=== PATIENT | male | born 1940 | race Caucasian/White ===

== ENCOUNTER 2017-06-01 23:48 | Observation (INO) | payer OTHER ==
--- NOTE | 2017-06-02 00:46 | ERNOTE ---
Medical Problem HPI - Narrative Date of Service: 06/02/17 - General Chief Complaint: General Assessment Time Seen by Provider: 06/02/17 00:40 - Immun/Allergies/Home Medications Immunizations: IMMUNIZATION HX Immunizations Up to Date Yes History of Influenza Vaccine Yes Hx Pneumococcal Vaccination Yes Allergies/Adverse Reactions: Allergies Penicillins Allergy (Verified 06/01/17 23:58) Home Medications: HOME MEDICATIONS Atorvastatin Calcium 0.5 tab PO HS 06/02/17 [Last Taken Unknown] HYDROcodone/ACETAMINOPHEN [[place] 5-325] 1 tab PO Q4H PRN 06/02/17 [Last Taken Unknown] Lisinopril [Zestril] 20 mg PO BID 06/02/17 [Last Taken Unknown] Tamsulosin HCl [Flomax] 0.4 mg PO DAILY 06/02/17 [Last Taken Unknown] amLODIPine BESYLATE [Norvasc] 10 mg PO DAILY 06/02/17 [Last Taken Unknown] busPIRone HCL [Buspar] 20 mg PO BID 06/02/17 [Last Taken Unknown] clonazePAM [Klonopin] 1 mg PO DAILY 06/02/17 [Last Taken Unknown] - History of Present History Narrative: This is a 76-year-old male with multiple past medical problems who presents to the emergency department around midnight. The patient and his were attempting to drive to [place] to the [facility] there, but they could not make it. The patient has been complaining of increasing abdominal pain, increasing weakness, pain in his penis, pain in his prostate, pain in his feet, inability to lay flat, generalized malaise. This is been going on and off for several months but seems to got much worse over the last 2- 3 days. It was so bad that they felt they had a drive in the middle of the night up to [place]. Again they did not make it. The patient denies chest pain. He denies shortness of breath. He denies vomiting. He has nausea. He says he does have constipation. He does not know when his last bowel movement was. His says that when he drinks any fluids, it just "goes right through him" patient denies headache or blurred vision. He says he has neuropathy in his legs, and his legs always hurt. Timing: getting worse Severity: severe Modifying Factors - (Improves): Present: other - on none Modifying Factors - (Worsens): Present: other - none Review of Systems - Review of Systems Constitutional: Present: recent illness, weakness, fatigue, malaise, weight loss EYE: Present: no symptoms reported ENT: Present: no symptoms reported Respiratory: Present: no symptoms reported. Absent: shortness of breath, cough , orthopnea, wheezing Cardiology: Present: no symptoms reported. Absent: chest pain, palpitations, syncope, edema Gastrointestinal/Abdominal: Present: nausea, constipation, abdominal pain, eating less. Absent: vomiting, diarrhea, drinking less Genitourinary: Present: frequency, pain. Absent: decreased urinary output, discharge Musculoskeletal: Present: muscle pain, other - generalized weakness and deconditioning Skin: Present: no symptoms reported Neurological: Present: no symptoms reported. Absent: weakness, numbness, tingling, tremors Endocrine: Present: no symptoms reported Hematologic/Lymphatic: Present: no symptoms reported Psych: Present: no symptoms reported All Other Systems: All systems neg except as marked - Patient's Past Medical History Patient History - Medical: Other Patient History - Cardiac/Respiratory: COPD, Hypertension Patient History - Cancer: Bladder Patient History - Surgical Procedures: Back Surgery, Cholecystectomy, Other Patient History - Other: None - Social History Living Situations: home Psych History: No pertinent hx Smoking Status: Current every day smoker Alcohol Use: none Drug Use: none - Immunizations Immunizations Up to Date: Yes Hx Pneumococcal Vaccination: Yes History of Influenza Vaccine: Yes Physical Exam - Physical Exam General Appearance: Present: wd/wn, alert, other - patient is ill-appearing. He is not in any distress. He cannot stand up on his own. Eye Exam: Normal inspection: bilateral, PERRL: bilateral, EOMI: bilateral Ears, Nose, Throat: Present: normal ENT inspection, normal pharynx Neck: Present: normal inspection, nontender, supple, other - no JVD Respiratory: Present: no respiratory distress, no accessory muscle use, chest nontender, wheezing Cardiovascular/Chest: Present: regular rate, rhythm, systolic murmur Gastrointestinal/Abdominal: Present: nondistended, soft, other - patient with significant tenderness in all quadrants. No rebound. No guarding Rectal Exam: Present: deferred Back Exam: Present: normal inspection, normal range of motion, no CVA tenderness , no vertebral tenderness Extremity Exam: Present: normal inspection, non-tender, normal range of motion, no edema Neurological Exam: Present: alert, oriented, normal mood/affect, no motor/ sensory deficits, other - generally weak Skin Exam: Present: normal color, warm/dry Lymphatic Exam: Present: no adenopathy ED Progress - Results and Orders Patient's Lab Results:: I have reviewed the patient's lab results. - Vital Signs Patient's Vital Signs:: I have reviewed the patient's vital signs. Vital Signs: Vital Signs 06/01/17 23:50 Temperature 38.6 C H Pulse Rate 113 H Respiratory 13 Rate Blood Pressure 157/79 O2 Sat by Pulse 93 Oximetry - EKG EKG: atrial fibrillation, other EKG Comments: Inferior MA. Age undetermined. No acute ST segment changes. Atrial fibrillation with rapid ventricular response. - Progress/Reassessment Chief Complaint: General Assessment Plan - Plan Plan: I've spoken with the hospitalist. She will come down and admit the patient. Heart rate is now 84 after a single bolus of Cardizem. Will hold off on the drip. Antibiotics are going. Certainly if he did not improve the hospitalist may want to consider transfer to the [place]. Departure - Departure Clinical Impression: Urinary tract infection Disposition: [facility] Condition: Stable
[2017-06-02 00:59] LABS: Hematocrit 38.6 % (42.0-52.0); Hemoglobin 13.5 gm/dL (13.5-18.0); Mean Cell Volume 85.8 fl (78-100); Mean Platelet Volume 9.8 fl (6.0-9.5); Neutrophil # 11.3 K/mm3 (1.3-6.0); Neutrophil % 86.6 % (42-75.0); Platelet Count 186 K/mm3 (150-450); Red Cell Distribution Width 13.7 % (11.5-14.0); White Blood Count 13.1 K/mm3 (4.0-10.5)
[2017-06-02 01:17] LABS: Albumin * 2.6 gm/dl (3.4-5.0); Anion Gap 11.4 mmol/L (6.8-13.8); BUN/Creatinine Ratio 14.7 (9.0-21.6); Bilirubin, Total 0.7 mg/dL (0.0-1.1); Ca. Corrected For Albumin 9.9 mg/dL (8.4-10.2); Calcium * 9.1 mg/dL (7.9-10.9); Carbon Dioxide 32.1 mmol/L (24-32.6); Potassium 3.5 mmol/L (3.4-4.6); Total Protein 6.1 gm/dL (6.2-8.2)
[2017-06-02 01:18] LABS: Urine Appearance Cloudy; Urine Bacteria 4+; Urine Bilirubin Negative (NEGATIVE); Urine Blood 50 /ul (NEGATIVE); Urine Color Yellow; Urine Ketone Negative (NEGATIVE); Urine Nitrite Positive (NEGATIVE); Urine Protein 100 mg/dL (NEGATIVE); Urine RBC None Seen /hpf (0-5); Urine Urobilinogen Normal (NORMAL); Urine WBC >50 /hpf (0-5); Urine pH 6.5 pH (5.0-7.0)
[2017-06-02 01:22] LABS: Troponin I 0.028 ng/ml (0.00-0.10)
[2017-06-02] MEDS ORDERED: DILTIAZEM HCL 125 MG in DEXTROSE 5 % IN WATER 100 ML IV PRN ×2 (01:25)
[2017-06-02] MEDS ORDERED: DILTIAZEM HCL 5 MG/ML VIAL IV ONE ×2 (01:25→01:29)
[2017-06-02 01:34] LABS: Prothrombin Time (Patient) 11.1 Seconds (9.4-11.4)
[2017-06-02 01:40] LABS: INR 1.07 INR (0.90-1.10)
--- OUTSIDE RECORDS SUMMARY | 2017-06-02 01:48 | XMS REPORT | Continuity of Care Document ---
:1940 Author Organization [facility] [place] [address] Care Team Providers Name Role Phone Unavailable Primary Care Provider Unavailable Source Comments This disclosure is being made pursuant to the [employer] program and maynot contain all information available regarding this patient.[facility] Active Allergies and Adverse Reactions Not on File Current Medications Be aware that medications may not be up to date as of this document. Alwaysverify current medications with the patient. Not on file Active Problems Not on file Immunizations Name Dates Previously Given Next Due Influenza Split 09/02/2007,10/28/2006 Pneumococcal Polysaccharide-23 10/28/2006 Social History Tobacco Use Types Packs/Day Years Used Date Current Every Day Smoker Plan of Care Health Maintenance Due Date Last Done Comments Tetanus/Pertussis (1 - Tdap) 1958 Well Adult Visit 1989 Zoster Vaccine 60+ 1999 Pneumococcal Low/Medium Risk 65+ (2 of 2 - 10/28/2007 10/28/2006 PCV13) Influenza Immunization (#1) 2016 09/02/2007, 10/28/2006 Results from Last 3 Months Not on file Insurance Payer Benefit Plan / Group Subscriber ID Type Phone Address [facility] [id number] [address] [place] [phone] [place] [address]
[2017-06-02] MEDS ORDERED: SENNOSIDES 8.6 MG TABLET PO SCH (02:57)
--- NOTE | 2017-06-02 03:23 | HP ---
Chief Complaint - Chief Complaint Date of Service: 06/02/17 Time of Service: 02:48 Chief Complaint: "Frequent urination, weakness, frequent falls". Source of HPI - Pt; reliable, ERP Provider report. History of Present Illness: Mr. Chen is a 76-yr-old [facility] pt who normally [facility] [place]. His PMH involves: BPH, Bladder Cancer, COPD, Degenerative disc disease & HTN. Pt states that for the last 7 days, he has had frequent urination and incontinence. He was out of his Flomax medication for 2 days and thought his symptoms may have been caused by lack of medicine. He called his PCP and the medication was refilled. He continued taking the Flomax, but his symptoms never really improved. He resides in [place], [place], his decided to drive him up to the [facility]. However, they had to stop at total of [address] due to his urinary urgency and so they decided to diverge to come to the [facility] ER instead. He reports having fevers and chills at home. He also states that he has been very weak lately. He says that performing even a simple task such as 'standing while shaving has been difficult and that he has staggered into the jimenez at times.' He reports his appetite has been very poor , has had LT sided abdominal pain and that his bowels have not moved for three days. He denies N/V, flank pain and hematurina, but he has had suprapubic pain. During evaluation at the ED, the CXR did not show any acute findings. The Abdominal X-ray showed moderate stool retention but no obstruction. He was found to have an elevated WBC 13,100 with a LT shift. He was febrile with a temp of 38.6. The EKG showed new onset A-fib with RVR in the 110s and he given 10mg IVP Diltiazem which controlled his rate to < 100. The UA showed presence of UTI. The pt will be admitted under observation status for remote telemetry monitoring and due to UTI. - Patient's Past Medical History Patient History - Medical: Other - BPH Patient History - Cardiac/Respiratory: COPD, Hypertension Patient History - Cancer: Bladder Patient History - Surgical Procedures: Back Surgery, Cholecystectomy, Other - Partial gastrectomy vagotomy in 1970s Patient History - Other: None - Family History Mother Family History - Medical: Father Family History - Medical: - Social History Living Situations: home Psych History: No pertinent hx Smoking Status: Current every day smoker - 1 ppd for 60 yrs. Alcohol Use: none Drug Use: none - Immunizations Immunizations Up to Date: Yes Hx Pneumococcal Vaccination: Yes History of Influenza Vaccine: Yes Review Of Systems (GEN) - Review of Systems Generalized/Overall Review: Present: Weakness, Chills, Fever, Malaise, Weight loss EENTM: Absent: Eye Pain, Blurred Vision, Tearing, Throat Swelling, Mouth Pain Respiratory: Absent: Cough, Shortness of Breath, Orthopnea, Wheezing Cardiac: Absent: Chest Pain, Edema, Palpitations Abdominal: Present: Abdominal Pain, Constipation. Absent: Nausea, Vomiting, Hematemesis, Diarrhea, Melena Genitourinary: Present: Burning, Urgency, Frequency. Absent: Hematuria Musculoskeletal: Present: Joint Pain, Back Pain Neurological: Present: Headache, Anxiety, Numbness Skin: Absent: Lesions, Bruising Endocrine: Present: Intolerance to Cold. Absent: Intolerance to Heat, Increased Hunger, Increased Thirst Misc: All systems neg except as marked Immunizations: IMMUNIZATION HX Immunizations Up to Date Yes History of Influenza Vaccine Yes Hx Pneumococcal Vaccination Yes Allergies/Adverse Reactions: Allergies Allergy/AdvReac Type Severity Reaction Status Date / Time Penicillins Allergy Verified 06/01/17 23:58 Home Medications: HOME MEDICATIONS Atorvastatin Calcium 0.5 tab PO HS 06/02/17 [Last Taken Unknown] HYDROcodone/ACETAMINOPHEN [[place] 5-325] 1 tab PO Q4H PRN 06/02/17 [Last Taken Unknown] Lisinopril [Zestril] 20 mg PO BID 06/02/17 [Last Taken Unknown] Tamsulosin HCl [Flomax] 0.4 mg PO DAILY 06/02/17 [Last Taken Unknown] amLODIPine BESYLATE [Norvasc] 10 mg PO DAILY 06/02/17 [Last Taken Unknown] busPIRone HCL [Buspar] 20 mg PO BID 06/02/17 [Last Taken Unknown] clonazePAM [Klonopin] 1 mg PO DAILY 06/02/17 [Last Taken Unknown] Exam - Exam Vital Signs: Vital Signs - Last Taken Temp 38.6 C H 06/01/17 23:50 Pulse 98 06/02/17 01:38 Resp 18 06/02/17 00:54 BP 112/69 06/02/17 01:38 Pulse Ox 92 06/02/17 00:54 Constitutional: Present: Alert, Oriented x3, Cooperative, No distress, Looks Older than stated age ENT Exam: Present: normal ENT inspection, hearing grossly normal. Absent: nasal congestion, nasal drainage Eye Exam: bilateral eye: normal inspection, PERRL Neck: Present: full range of motion, supple, normal inspection Back Exam: Present: normal inspection, no CVA tenderness Breasts: Present: Exam deferred Respiratory: Present: lungs clear, no accessory muscle use, No wheezing Cardiovascular/Chest: Present: normal peripheral pulses, no chest tenderness, no edema, irregularly irregular Abdomen: Present: Normal bowel sounds, soft, nontender /Rectal: Present: Exam deferred Extremity: Present: normal range of motion, non-tender, normal inspection Skin Exam: Present: warm/dry, no cyanosis Lymphatic: Present: no adenopathy Neurologic: Present: no motor/sensory deficits, alert, oriented x 3, depressed affect Appearance: Present: appropriate appearance, appropriate insight Eye contact: Present: cooperative, good eye contact, normal speech Thoughts: Present: normal thought pattern, no apparent hallucination Diagnostic Studies: Laboratory Results WBC 13.1 K/mm3 (4.0-10.5) H 06/02/17 00:55 RBC 4.50 M/mm3 (4.7-6.0) L 06/02/17 00:55 Hgb 13.5 gm/dL (13.5-18.0) 06/02/17 00:55 Hct 38.6 % (42.0-52.0) L 06/02/17 00:55 MCV 85.8 fl (78-100) 06/02/17 00:55 MCH 30.0 pg (27-31) 06/02/17 00:55 MCHC 35.0 g/dl (32-36) 06/02/17 00:55 RDW 13.7 % (11.5-14.0) 06/02/17 00:55 Plt Count 186 K/mm3 (150-450) 06/02/17 00:55 MPV 9.8 fl (6.0-9.5) H 06/02/17 00:55 Immature Gran % (Auto) 0.60 % (0.001-0.429) H 06/02/17 00:55 Immature Gran # (Auto) 0.08 K/mm3 (0.000-0.0310) H 06/02/17 00:55 Neutrophils % 86.6 % (42-75.0) H 06/02/17 00:55 Lymphocytes % 3.4 % (20-51) L 06/02/17 00:55 Monocytes % 9.1 % (0.0-9) H 06/02/17 00:55 Eosinophils % 0.1 % (0.0-3.0) 06/02/17 00:55 Basophils % 0.2 % (0.0-1.0) 06/02/17 00:55 Nucleated RBC % 0.0 k/mm3 (0-1) 06/02/17 00:55 Neutrophils # 11.3 K/mm3 (1.3-6.0) H 06/02/17 00:55 Lymphocytes # 0.5 k/mm3 (1.5-3.5) L 06/02/17 00:55 Monocytes # 1.2 k/mm3 (0.0-1.0) H 06/02/17 00:55 Eosinophils # 0.0 k/mm3 (0.0-0.7) 06/02/17 00:55 Absolute Basophils 0.0 k/mm3 (0.0-0.1) 06/02/17 00:55 PT 11.1 Seconds (9.4-11.4) 06/02/17 00:55 INR (Anticoag Therapy) 1.07 INR (0.90-1.10) 06/02/17 00:55 pCO2 36.8 mmHg (35.0-48.0) 06/02/17 00:50 pO2 54.4 mmHg (83.0-108.0) L 06/02/17 00:50 HCO3 29.2 mmol/L (21.0-28.0) H 06/02/17 00:50 Total CO2 30.3 mmol/L (19.0-24.0) H 06/02/17 00:50 Base Excess 6.1 mmol/L (-2.0-3.0) H 06/02/17 00:50 ABG pH 7.52 (7.35-7.45) H 06/02/17 00:50 ABG O2 Sat (Measured) 91.4 % (94.0-98.0) L 06/02/17 00:50 Sodium 131 mmol/L (132-142) L 06/02/17 00:55 Plasma Sodium 133 mmol/L (130-142) 06/02/17 00:55 Potassium 3.5 mmol/L (3.4-4.6) 06/02/17 00:55 Chloride 91 mmol/L (97-106) L 06/02/17 00:55 Carbon Dioxide 32.1 mmol/L (24-32.6) 06/02/17 00:55 Anion Gap 11.4 mmol/L (6.8-13.8) 06/02/17 00:55 BUN 17 mg/dL (6-23) 06/02/17 00:55 Creatinine 1.16 mg/dL (0.4-1.4) 06/02/17 00:55 Est GFR (Non-Af Amer) 65 mL/min (60-130) 06/02/17 00:55 BUN/Creatinine Ratio 14.7 (9.0-21.6) 06/02/17 00:55 Random Glucose 209 mg/dL (70-110) H 06/02/17 00:55 Lactic Acid, Venous 1.3 mmol/L (0.4-1.9) 06/02/17 00:55 Calcium 9.1 mg/dL (7.9-10.9) 06/02/17 00:55 Calcium Adj for Albumin 9.9 mg/dL (8.4-10.2) 06/02/17 00:55 Total Bilirubin 0.7 mg/dL (0.0-1.1) 06/02/17 00:55 AST 21 U/L (0-48) 06/02/17 00:55 ALT 36 U/L (19-67) 06/02/17 00:55 Alkaline Phosphatase 121 U/L (50-170) 06/02/17 00:55 Troponin I 0.028 ng/ml (0.00-0.10) 06/02/17 00:55 B-Natriuretic Peptide 1598 pg/mL (5-650) H 06/02/17 00:55 Total Protein 6.1 gm/dL (6.2-8.2) L 07 00:55 Albumin 2.6 gm/dl (3.4-5.0) L 06/02/17 00:55 Lipase 32 U/L (73-393) L 06/02/17 00:55 Urine Color Yellow 06/02/17 01:00 Urine Appearance Cloudy 06/02/17 01:00 Urine pH 6.5 pH (5.0-7.0) 06/02/17 01:00 Ur Specific Decker 1.010 SP.GR. (1.005-1.030) 06/02/17 01:00 Urine Protein 100 mg/dL (NEGATIVE) H 06/02/17 01:00 Urine Glucose (UA) Negative mg/dL (NEGATIVE) 06/02/17 01:00 Urine Ketones Negative mg/dL (NEGATIVE) 06/02/17 01:00 Urine Blood 50 /ul (NEGATIVE) H 06/02/17 01:00 Urine Nitrate Positive (NEGATIVE) H 06/02/17 01:00 Urine Bilirubin Negative mg/dl (NEGATIVE) 06/02/17 01:00 Prot Sulfosalicylic Acd 2+ mg/dL (0) H 06/02/17 01:00 Urine Urobilinogen Normal EU/dl (NORMAL) 06/02/17 01:00 Ur Leukocyte Esterase 500 /ul (NEGATIVE) H 06/02/17 01:00 Urine RBC None seen /hpf (0-5) 06/02/17 01:00 Urine WBC >50 /hpf (0-5) H 06/02/17 01:00 Ur Epithelial Cells 0-5 /hpf (0-5) 06/02/17 01:00 Urine Bacteria 4+ (NONE) H 06/02/17 01:00 Urine Culture Comments Culture to follow 06/02/17 01:00 Assessment/Plan - Assessment/Plan (1) Urinary tract infection Assessment: Mr. Chen presented with symptoms involving frequent urination and urge incontinence and the UA showed presence of a UTI. He was also febrile with a temp of 38.6 at the ED along with elevated WBC of 13,100. PMH reveals hx of BPH , Bladder cancer & Constipation. Its likely the the UTI arose due to obstruction causes from the BPH or Constipation. Will treat his constipation with stimulant laxatives. Will check PVR and if having high residuals, consider consulting urology, otherwise he has an upcoming appt. at the [facility] of 06/20/17 for his BPH. Received Rocephin at the ED and will continue until urine culture results. Monitor CBC in am. Problem: Acute (2) Atrial fibrillation with RVR Assessment: The EKG showed A-fib with RVR rate into the 110s and required IVP diltiazem to control the rate to < 100 but remained in A-fib until 0400am when he converted to NSR. He reported the associated symptoms of lightheadedness & SOB, but no chest pain, or palpitations. The EKG and troponin did not show any signs of ischemic changes. He had no electrolyte imbalance. His BNP was elevated at 1598 and its possible that the he has structural heart diseases from CHF, or other valvular disease, and so it will be helpful obtain an Echocardiogram. Its also likely that the Afib with RVR was caused by systemic stress from fevers or infection. Will place on remote telemetry and monitor while under observation stay incase he warrants additional work-up and anticoagulation therapy. Will obtain records from [facility]. Problem: Acute (3) Discharge planning issues Assessment: Pt prefers to be transferred to the [facility] in the event that he needs inpatient admission. Problem: Acute (4) Constipation Assessment: He is chronically on Opiods. Will Treat with stimulant laxatives. Problem: Chronic (5) HTN (hypertension) Problem: Chronic Qualifiers: Hypertension type: essential hypertension Qualified Code(s): I10 - Essential (primary) hypertension (6) BPH (benign prostatic hyperplasia) Problem: Chronic (7) Bladder cancer Problem: Chronic
[2017-06-02] MEDS: NORMAL SALINE 1,000 ML IV PRN ×2 (04:27→12:42)
[2017-06-02] MEDS: HYDROcodone/ACETAMINOPHEN 1 EACH TABLET PO PRN ×2 (04:37→09:18)
[2017-06-02] MEDS: POLYETHYLENE GLYCOL 3350 119 GM BTL PO SCH ×2 (04:37→09:10)
[2017-06-02 05:46] LABS: Hematocrit 36.8 % (42.0-52.0); Hemoglobin 12.8 gm/dL (13.5-18.0); Mean Cell Volume 86.4 fl (78-100); Mean Corpuscular Hgb Conc 34.8 g/dl (32-36); Mean Platelet Volume 10.1 fl (6.0-9.5); Platelet Count 189 K/mm3 (150-450); Red Blood Count 4.26 M/mm3 (4.7-6.0); Red Cell Distribution Width 13.8 % (11.5-14.0)
[2017-06-02 05:55] LABS: Anion Gap 7.5 mmol/L (6.8-13.8); BUN/Creatinine Ratio 15.3 (9.0-21.6); Calcium * 9.1 mg/dL (7.9-10.9); Estimated Creat Clear 57.5; Potassium 3.5 mmol/L (3.4-4.6)
[2017-06-02 05:57] LABS: Total Cells Counted 100
[2017-06-02 06:22] LABS: Atypical (Reactive) Lymph 1 % (0-2); Band 8 % (0-2.0); Immature Granulocyte 3 (0-1); Lymphocyte 8 % (20-51); Monocyte 1 % (0-9); Neutrophil 79 % (42-75); Neutrophil # 11.1 K/mm3 (1.3-6.0); Platelet Estimate Normal (NORMAL); Toxic Granulation 2+
[2017-06-02 08:25] VITALS: BP 117/56
[2017-06-02] MEDS ORDERED: LISINOPRIL 20 MG TABLET PO SCH (09:00)
[2017-06-02] MEDS ORDERED: amLODIPine BESYLATE 10 MG TABLET PO SCH (09:00)
[2017-06-02] MEDS ORDERED: TAMSULOSIN HCL 0.4 MG CAP.SR.24H PO SCH (09:00)
[2017-06-02] MEDS ORDERED: clonazePAM 1 MG TABLET PO SCH (09:00)
[2017-06-02] MEDS ORDERED: busPIRone HCL 5 MG TABLET PO SCH (09:00)
[2017-06-02] MEDS ORDERED: ACETAMINOPHEN 325 MG TABLET PO PRN (10:03)
[2017-06-02] MEDS ORDERED: ATORVASTATIN CALCIUM PO SCH (21:00)
--- NOTE | 2017-07-03 07:47 | DS ---
Transfer Discharge Summary - Diagnosis(s)/Problems (1) Atrial fibrillation with RVR Problem: Acute (2) Urinary tract infection Problem: Acute - Course Description of Stay: Patient was admitted to observation at [facility] due to UTI and Atrial fibrillation with RVR. He is a patient of the OR, which was contacted but initially did not have a bed for admission. The patient and family requested admission at the OR, but due to no open beds he was admitted here for observation. He was given rocephin for UTI and diltiazem for Afib with RVR. With this he converted to normal sinus rhythm. A bed became available at the OR and he was transferred to their facility for further treatment. Procedures Performed: none - Medications Medications: Active Medications Discontinued Medications Acetaminophen (Tylenol) 650 mg PO Q6H PRN PRN Reason: Mild pain Stop: 07/02/17 10:04 Last Admin: 06/02/17 11:51 Dose: 650 mg Acetaminophen/Hydrocodone Bitart ([place] 5-325) 1 each PO Q4H PRN PRN Reason: Pain Stop: 07/02/17 02:56 Last Admin: 06/02/17 09:18 Dose: 1 each Amlodipine Besylate (Norvasc) 10 mg PO DAILY CARLO Stop: 07/02/17 09:01 Last Admin: 06/02/17 09:10 Dose: 10 mg Buspirone HCl (Buspar) 20 mg PO BID CARLO Stop: 07/02/17 09:01 Last Admin: 06/02/17 09:10 Dose: 20 mg Clonazepam (Klonopin) 1 mg PO DAILY CARLO Stop: 07/02/17 09:01 Last Admin: 06/02/17 09:18 Dose: 1 mg Diltiazem HCl (Cardizem) 10 mg IV ONCE ONE Stop: 06/02/17 01:26 Last Admin: 06/02/17 01:38 Dose: 10 mg Ceftriaxone Sodium 1,000 mg/ (Dextrose/Water) 100 mls @ 200 mls/hr IV ONCE ONE PRN Reason: Protocol Stop: 06/02/17 01:49 Last Infusion: 06/02/17 02:10 Dose: Infused Sodium Chloride (Sodium Chloride 0.9%) 1,000 mls @ 125 mls/hr IV .Q8H PRN PRN Reason: HYDRATION Stop: 07/02/17 03:00 Last Admin: 06/02/17 12:42 Dose: 125 mls/hr Ceftriaxone Sodium 1,000 mg/ (Dextrose/Water) 100 mls @ 200 mls/hr IV Q12H CARLO PRN Reason: Protocol Stop: 07/02/17 06:31 Last Infusion: 06/02/17 08:15 Dose: Infused Lisinopril (Zestril) 20 mg PO BID CARLO Stop: 07/02/17 09:01 Last Admin: 06/02/17 09:09 Dose: 20 mg Polyethylene Glycol (Miralax) 17 gm PO DAILY CARLO Stop: 07/02/17 02:59 Last Admin: 06/02/17 09:10 Dose: 17 gm Senna (Senokot) 8.6 mg PO HS [facility] Stop: 07/02/17 02:58 Last Admin: 06/02/17 04:37 Dose: 8.6 mg Tamsulosin HCl (Flomax) 0.4 mg PO DAILY CARLO Stop: 07/02/17 09:01 Last Admin: 06/02/17 09:18 Dose: 0.4 mg - Disposition Disposition: Other health care facility Condition: Stable
== END 2017-06-02 13:20 | disposition short-term general hospital (02) ==
LOC: ER 23:48 → MS 06-02 02:02
PROVIDERS: ADMIT Nurse Practitioner; ATTEND Family Medicine
PROC: 4A033R1 Measurement of Arterial Saturation, Peripheral, Percutaneous Approach (ICD-10-PCS; principal; 2017-06-01)
DX: N39.0 Urinary tract infection, site not specified (principal); B96.20 Unspecified Escherichia coli [E. coli] as the cause of diseases classified elsewhere; I48.91 Unspecified atrial fibrillation; I10 Essential (primary) hypertension; J44.9 Chronic obstructive pulmonary disease, unspecified; Z72.0 Tobacco use; N40.1 Benign prostatic hyperplasia with lower urinary tract symptoms; R35.0 Frequency of micturition; K59.00 Constipation, unspecified; Z85.51 Personal history of malignant neoplasm of bladder
CPT/HCPCS: 36415; 36600; 71010; 74020; 80048; 80053; 81001; 82803; 83605; 83690; 83880; 84484; 85007; 85025; 85610; 87040; 87077; 87086; 87186; 93005; 96365; 96366; 96375; 99284; G0378

== ENCOUNTER 2017-08-03 16:18 | Emergency (ER) | payer OTHER ==
[2017-08-03 17:08] LABS: Hematocrit 41.6 % (42.0-52.0); Hemoglobin 14.3 gm/dL (13.5-18.0); Mean Corpuscular Hemoglobin 29.9 pg (27-31); Mean Corpuscular Hgb Conc 34.4 g/dl (32-36); Mean Platelet Volume 10.3 fl (6.0-9.5); Neutrophil # 5.1 K/mm3 (1.3-6.0); Neutrophil % 65.9 % (42-75.0); Platelet Count 172 K/mm3 (150-450); Red Blood Count 4.78 M/mm3 (4.7-6.0); Red Cell Distribution Width 14.4 % (11.5-14.0); White Blood Count 7.7 K/mm3 (4.0-10.5)
[2017-08-03 17:27] LABS: ALT 61 U/L (19-67); AST 35 U/L (0-48); Albumin * 3.3 gm/dl (3.4-5.0); Alkaline Phosphatase * 256 U/L (50-170); Anion Gap 11.1 mmol/L (6.8-13.8); BNP * 198 pg/mL (5-650); BUN/Creatinine Ratio 14.4 (9.0-21.6); Bilirubin, Total 0.6 mg/dL (0.0-1.1); Blood Urea Nitrogen 13 mg/dL (6-23); Ca. Corrected For Albumin 9.7 mg/dL (8.4-10.2); Calcium * 9.5 mg/dL (7.9-10.9); Carbon Dioxide 29.9 mmol/L (24-32.6); Chloride 96 mmol/L (97-106); Glucose * 99 mg/dL (70-110); Sodium 133 mmol/L (132-142); Total Protein 6.9 gm/dL (6.2-8.2); Troponin I Less than 0.017 ng/ml (0.00-0.10)
[2017-08-03 18:32] LABS: Urine Appearance Cloudy; Urine Bilirubin Negative (NEGATIVE); Urine Blood 10 /ul (NEGATIVE); Urine Color Yellow; Urine Ketone Negative (NEGATIVE); Urine Nitrite Negative (NEGATIVE); Urine Protein Negative (NEGATIVE); Urine Specific Gravity 1.005 SP.GR. (1.005-1.030); Urine Urobilinogen Normal (NORMAL); Urine pH 6.5 pH (5.0-7.0)
[2017-08-03 18:33] LABS: Urine WBC >50 /hpf (0-5)
[2017-08-03 18:34] LABS: Urine Bacteria 3+; Urine RBC 0-5 /hpf (0-5)
--- NOTE | 2017-08-03 19:19 | ERNOTE ---
Medical Problem HPI - Narrative Date of Service: 08/03/17 - General Chief Complaint: General Assessment Time Seen by Provider: 08/03/17 16:42 Source: patient, family Exam Limitations: no limitations, clinical condition - Immun/Allergies/Home Medications Immunizations: IMMUNIZATION HX Immunizations Up to Date Yes History of Influenza Vaccine Yes Hx Pneumococcal Vaccination Yes Allergies/Adverse Reactions: Allergies Penicillins Allergy (Verified 08/03/17 16:43) Home Medications: HOME MEDICATIONS Acetaminophen [Tylenol] 650 mg PO Q6H PRN 06/02/17 [Last Taken Unknown] Albuterol Sulfate [Ventolin Hfa] 2 puff IH QID 06/02/17 [Last Taken Unknown] Atorvastatin Calcium 10 mg PO HS 06/02/17 [Last Taken Unknown] Budesonide/Formoterol Fumarate [Symbicort 160-4.5 Mcg Inhaler] 2 puff IH BID 02/14 [Last Taken Unknown] Cholecalciferol (Vitamin D3) [Vitamin D3] 1,000 unit PO DAILY 06/02/17 [Last Taken Unknown] Clopidogrel Bisulfate [Plavix] 75 mg PO DAILY 06/02/17 [Last Taken Unknown] HYDROcodone/ACETAMINOPHEN [Camino 5-325] 1 tab PO Q4H PRN 06/02/17 [Last Taken Unknown] Lisinopril [Zestril] 20 mg PO BID 06/02/17 [Last Taken Unknown] Multivit with Minerals/Lutein [Pub Senior Vitamin Tablet] 1 each PO DAILY [Last Taken Unknown] Sennosides/Docusate Sodium [Senokot-S] 1 tab PO PRN PRN 06/02/17 [Last Taken Unknown] Tamsulosin HCl [Flomax] 0.4 mg PO DAILY 06/02/17 [Last Taken Unknown] Tamsulosin HCl [Flomax] 0.4 mg PO DAILY 06/02/17 [Last Taken Unknown] amLODIPine BESYLATE [Norvasc] 10 mg PO DAILY 06/02/17 [Last Taken Unknown] busPIRone HCL [Buspar] 10 mg PO BID 06/02/17 [Last Taken Unknown] clonazePAM [Klonopin] 0.5 mg PO DAILY 06/02/17 [Last Taken Unknown] Ciprofloxacin HCl [Cipro] 500 mg PO BID #20 tab 08/03/17 [Last Taken Unknown] HYDROcodone/ACETAMINOPHEN [Camino 7.5-325 Tablet] 1 each PO 5XD #40 tablet [Last Taken Unknown] - History of Present History Narrative: patient c/o low back pain , has been without pain maeds for several days as family has stolen them, also c/o frequency and dribbling Timing: constant, getting worse Severity: moderate Modifying Factors - (Improves): Present: immobilization Modifying Factors - (Worsens): Present: movement Review of Systems - Review of Systems Constitutional: Present: See HPI, weakness, malaise EYE: Present: no symptoms reported ENT: Present: no symptoms reported Respiratory: Present: no symptoms reported Cardiology: Present: no symptoms reported Gastrointestinal/Abdominal: Present: See HPI, other - hx of chronic smith colon Genitourinary: Present: See HPI, frequency, pain, dysuria Musculoskeletal: Present: back pain, muscle stiffness, joint pain Skin: Present: no symptoms reported Neurological: Present: no symptoms reported Endocrine: Present: no symptoms reported Hematologic/Lymphatic: Present: no symptoms reported, See HPI Psych: Present: no symptoms reported, See HPI All Other Systems: All systems neg except as marked - Narrative Narrative: chronic smith colon - Patient's Past Medical History Patient History - Medical: Chronic Pain, Osteoarthritis, Other Patient History - Cardiac/Respiratory: Atrial Fibrillation, COPD, Hypertension Patient History - Cancer: Bladder Patient History - Surgical Procedures: Back Surgery, Cholecystectomy, Other Patient History - Other: None - Family History Mother Family History - Medical: Father Family History - Medical: - Social History Living Situations: home Abuse History: No History of abuse, Hx of Substance Use Psych History: No pertinent hx Smoking Status: Current every day smoker Have you smoked in the past 12 months: Yes Alcohol Use: none Drug Use: none - Immunizations Immunizations Up to Date: Yes Hx Pneumococcal Vaccination: Yes History of Influenza Vaccine: Yes Physical Exam - Physical Exam General Appearance: Present: moderate distress Head Exam: Present: normal inspection Eye Exam: Normal inspection: bilateral, PERRL: bilateral, EOMI: bilateral Ears, Nose, Throat: Present: normal ENT inspection Neck: Present: normal inspection, nontender Respiratory: Present: no respiratory distress, normal breath sounds, no accessory muscle use, chest nontender, lungs clear Cardiovascular/Chest: Present: regular rate, rhythm, no murmur, normal peripheral pulses Peripheral Pulses: N=norm/S=strong/W=weak/B=bound/A=absent: Carotid (R): Normal , Carotid (L): Normal, Radial (R): Normal, Radial (L): Normal, Femoral (R): Normal, Femoral (L): Normal, Dorsalis-pedis (R): Normal, Dorsalis-pedis (L): Normal Gastrointestinal/Abdominal: Present: normal bowel sounds, nontender, other - abdomen distended Rectal Exam: Present: nontender, normal rectal tone Back Exam: Present: decreased range of motion, muscle spasm - lumbosacral region Extremity Exam: Present: normal inspection, non-tender, normal range of motion, no edema Neurological Exam: Present: alert, oriented, normal mood/affect, no motor/ sensory deficits DTR: N=norm/NB=norm/brisk/A=abs/DD=dull/dimin/HC=hyperactive: Bicep (R): Normal , Bicep (L): Normal, Tricep (R): Normal, Tricep (L): Normal, Knee (R): Normal, Knee (L): Normal, Ankle (R): Normal, Ankle (L): Normal Skin Exam: Present: normal color, warm/dry Lymphatic Exam: Present: no adenopathy ED Progress - Results and Orders Patient's Lab Results:: I have reviewed the patient's lab results. - Vital Signs Patient's Vital Signs:: I have reviewed the patient's vital signs. Vital Signs: Vital Signs 08/03/17 08/03/17 08/03/17 16:40 16:55 17:08 Temperature 36.7 C Pulse Rate 73 73 70 Respiratory 13 12 13 Rate Blood Pressure 195/95 166/76 171/87 O2 Sat by Pulse 98 98 99 Oximetry 08/03/17 08/03/17 08/03/17 17:25 17:38 18:21 Temperature Pulse Rate 62 63 90 Respiratory 20 24 H 26 H Rate Blood Pressure 120/62 129/68 132/84 O2 Sat by Pulse 93 92 96 Oximetry 08/03/17 18:57 Temperature Pulse Rate 72 Respiratory 18 Rate Blood Pressure 157/82 O2 Sat by Pulse 95 Oximetry - EKG EKG: NSR - X-Ray X-Ray #2 X-Ray: abdomen - degenerative joint disease lumbar spine chronic smith colon - Progress/Reassessment Chief Complaint: General Assessment Progress:: Improved - Transfer of Care Expected Disposition: Discharge Departure - Departure Clinical Impression: Urinary tract infection, Degenerative arthritis Disposition: Home self-care Condition: Fair Instructions: Urinary Tract Infection, Adult, [id number], Osteoarthritis Prescriptions: Ciprofloxacin HCl [Cipro] 500 mg PO BID #20 tab HYDROcodone/ACETAMINOPHEN [Camino 7.5-325 Tablet] 1 each PO 5XD #40 tablet
[2017-08-03] MEDS ORDERED: CIPROFLOXACIN HCL 250 MG TABLET ONE (19:32)
[2017-08-03] MEDS ORDERED: HYDROcodone/ACETAMINOPHEN 1 EACH TABLET ONE (19:32)
[2017-08-03] MEDS ORDERED: CIPROFLOXACIN HCL 250 MG TABLET PO ONE (19:34)
[2017-08-03] MEDS ORDERED: HYDROcodone/ACETAMINOPHEN 1 EACH TABLET PO ONE (19:34)
[2017-08-03 21:42] VITALS: BP 156/79
== END 2017-08-03 19:45 | disposition home or self-care (01) ==
LOC: ER 16:18
DX: M19.90 Unspecified osteoarthritis, unspecified site (principal); N39.0 Urinary tract infection, site not specified; F17.200 Nicotine dependence, unspecified, uncomplicated; Z85.51 Personal history of malignant neoplasm of bladder

== ENCOUNTER 2017-09-06 23:49 | Emergency (ER) | payer OTHER ==
--- NOTE | 2017-09-07 01:06 | ERNOTE ---
Abdominal HPI - General Chief Complaint: Abdominal Pain Time Seen by Provider: 09/07/17 00:56 Source: patient, family - Immun/Allergies/Home Medications Immunizatons: IMMUNIZATION HX Immunizations Up to Date Yes History of Influenza Vaccine No Hx Pneumococcal Vaccination Yes Allergies/Adverse Reactions: Allergies Penicillins Allergy (Verified 08/03/17 16:43) Home Medications: HOME MEDICATIONS Acetaminophen [Tylenol] 650 mg PO Q6H PRN 06/02/17 [Last Taken Unknown] Albuterol Sulfate [Ventolin Hfa] 2 puff IH QID 06/02/17 [Last Taken Unknown] Atorvastatin Calcium 10 mg PO HS 06/02/17 [Last Taken Unknown] Budesonide/Formoterol Fumarate [Symbicort 160-4.5 Mcg Inhaler] 2 puff IH BID 02/14 [Last Taken Unknown] Cholecalciferol (Vitamin D3) [Vitamin D3] 1,000 unit PO DAILY 06/02/17 [Last Taken Unknown] Clopidogrel Bisulfate [Plavix] 75 mg PO DAILY 06/02/17 [Last Taken Unknown] Lisinopril [Zestril] 20 mg PO BID 06/02/17 [Last Taken Unknown] Multivit with Minerals/Lutein [Pub Senior Vitamin Tablet] 1 each PO DAILY [Last Taken Unknown] Sennosides/Docusate Sodium [Senokot-S] 1 tab PO PRN PRN 06/02/17 [Last Taken Unknown] Tamsulosin HCl [Flomax] 0.4 mg PO DAILY 06/02/17 [Last Taken Unknown] amLODIPine BESYLATE [Norvasc] 10 mg PO DAILY 06/02/17 [Last Taken Unknown] busPIRone HCL [Buspar] 10 mg PO BID 06/02/17 [Last Taken Unknown] clonazePAM [Klonopin] 0.5 mg PO DAILY 06/02/17 [Last Taken Unknown] Vit A/C/E AC/Znox/Cupric Oxide [Eye Vitamin-Minerals Tablet] 1 each PO DAILY 07/17 [Last Taken Unknown] - History of Present Illness Narrative: Patient with complaints of lower abdominal pain that has been ongoing for some time, ever since he had a hernia repair. It has worsened quite a bit, and tonight is excruciating. He also has had black stools with a metallic odor for the last two days. He was going to get a CT scan up at the [facility], but they were unable to arrange it when he was up there. He wants to be transferred to the [facility] in [place] if he needs to be admitted. He notes that he has lost a hundred pounds over the last year. Timing: getting worse Quality: severe, sharpness Activities at Onset: activity Modifying Factors - (Improves): Present: lying down Modifying Factors - (Worsens): Present: coughing, defecating, sitting up, movement, exercise Associated Symptoms: Present: other - black stools Prior Abdominal Problems: Present: none Prior Treatment: Present: recently seen - by the [facility] Review of Systems - Review of Systems Constitutional: Absent: recent illness, fever, chills EYE: Present: no symptoms reported ENT: Absent: ear pain, sore throat Respiratory: Absent: shortness of breath, cough Cardiology: Absent: chest pain Gastrointestinal/Abdominal: Present: other - black stools. Absent: nausea, vomiting, diarrhea Genitourinary: Present: no symptoms reported Musculoskeletal: Present: no symptoms reported Skin: Present: no symptoms reported Neurological: Present: no symptoms reported Endocrine: Present: no symptoms reported - Patient's Past Medical History Patient History - Medical: Chronic Pain, Osteoarthritis, Other Patient History - Cardiac/Respiratory: Atrial Fibrillation, COPD, Hypertension Patient History - Cancer: Bladder Patient History - Surgical Procedures: Back Surgery, Cholecystectomy, Other Patient History - Other: None - Family History Mother Family History - Medical: Father Family History - Medical: - Social History Living Situations: spouse Abuse History: No History of abuse, Hx of Substance Use Psych History: No pertinent hx Smoking Status: Current every day smoker Have you smoked in the past 12 months: Yes Do you dip or chew tobacco: No Alcohol Use: none Drug Use: none - Immunizations Immunizations Up to Date: Yes Hx Pneumococcal Vaccination: Yes History of Influenza Vaccine: No Physical Exam - Physical Exam General Appearance: Present: wd/wn, alert, mild distress Head Exam: Present: normal inspection, no evidence of injury Eye Exam: Normal inspection: bilateral, PERRL: bilateral, EOMI: bilateral Ears, Nose, Throat: Present: normal ENT inspection Neck: Present: normal inspection, nontender Respiratory: Present: no respiratory distress, normal breath sounds, no accessory muscle use, chest nontender, lungs clear Cardiovascular/Chest: Present: regular rate, rhythm, no murmur Gastrointestinal/Abdominal: Present: nondistended, soft, abnormal bowel sounds - tinkling Rectal Exam: Present: nontender, normal rectal tone, black stool Extremity Exam: Present: normal inspection, non-tender, normal range of motion, no edema Neurological Exam: Present: alert, oriented, normal mood/affect, no motor/ sensory deficits Skin Exam: Present: pallor ED Progress - Results and Orders Patient's Lab Results:: I have reviewed the patient's lab results. Results and Orders: Elevated Liver Enzymes - Vital Signs Patient's Vital Signs:: I have reviewed the patient's vital signs. Vital Signs: Vital Signs 09/06/17 09/07/17 23:54 00:43 Temperature 36.6 C Pulse Rate 87 73 Respiratory 16 16 Rate Blood Pressure 188/104 141/70 O2 Sat by Pulse 99 99 Oximetry - CT/Ultrasound CT/Ultrasound Narrative: CT Abdomen/Chest with PO and IV contrast: Right lower lobe cavitary lesion - possibly neoplastic vs infectious. Right lower lobe peripheral airspace disease, likely infiltrate. Multiple incompletely visualized and ill-defined intrahepatic hypodensities that are worrisome for metastatic neoplasia. Perihepatic ascites. Nonspecific intrarenal hypodensity, likely renal cyst(s) Right common iliac artery incompletely visualized stent that may be occluded, as well as [place] left common iliac artery possible occlusion Prostatomegaly, with numerous foci of intraglandular fluid density that may reflect necrosis associated witih malignancy. Marked colonic stool loading, which may manifest clinically as constipation. Appendix not visualized. No diverticulitis/colitis or bowel obstruction. Mixed right inferior pubic ramus and ischial tuberosity lytic/blastic foci consistent with metastases, with possible superimposed nondisplaced pathologic fracture. Rest of visualized exam nonacute/unremarkable for age. - Progress/Reassessment Chief Complaint: Abdominal Pain Progress:: Unchanged Progress Note-Subjective: 09/07/17 08:[address] Stevens at the [facility] in [place], along adrien Mendiola. We discussed patient's presentation and his CT scan. They agreed to accept the patient for further evaluation and treatment, requesting that we use the local ambulance service to transfer him, and that they would pay for that ambulance service. Patient to go to the ICU as an overflow patient with the diagnoses of a GI Bleed and metastatic cancer. Plan - Plan Plan: 07:05. [facility] [place], [facility] Departure Clinical Impression: Constipation by delayed colonic transit, Multiple lesions of metastatic malignancy Fracture of right inferior pubic ramus Qualifiers: Encounter type: initial encounter Fracture type: closed Qualified Code(s): S32.591A - Other specified fracture of right pubis, initial encounter for closed fracture GI bleed Qualifiers: GI bleed type/associated pathology: melena Qualified Code(s): K92.1 - Melena - Departure Disposition: Other health care facility Condition: Serious
[2017-09-07] MEDS ORDERED: MORPHINE SULFATE 2 MG/ML DISP.SYRIN IV ONE ×3 (01:52→08:44)
[2017-09-07] MEDS ORDERED: MORPHINE SULFATE 2 MG/ML DISP.SYRIN ONE ×3 (01:53→08:46)
[2017-09-07 02:18] LABS: Hematocrit 39.2 % (42.0-52.0); Hemoglobin 13.3 gm/dL (13.5-18.0); Mean Cell Volume 86.3 fl (78-100); Mean Corpuscular Hemoglobin 29.3 pg (27-31); Mean Corpuscular Hgb Conc 33.9 g/dl (32-36); Mean Platelet Volume 9.9 fl (6.0-9.5); Neutrophil # 4.6 K/mm3 (1.3-6.0); Neutrophil % 66.3 % (42-75.0); Platelet Count 155 K/mm3 (150-450); Red Blood Count 4.54 M/mm3 (4.7-6.0); Red Cell Distribution Width 14.6 % (11.5-14.0)
[2017-09-07 02:28] LABS: Urine Bilirubin Negative (NEGATIVE); Urine Ketone Negative (NEGATIVE); Urine Nitrite Negative (NEGATIVE); Urine Protein 15 mg/dL (NEGATIVE); Urine Specific Gravity <=1.005 SP.GR. (1.005-1.030); Urine Urobilinogen Normal (NORMAL); Urine pH 6.5 pH (5.0-7.0)
[2017-09-07 02:34] LABS: Albumin * 3.5 gm/dl (3.4-5.0); Anion Gap 11.6 mmol/L (6.8-13.8); BUN/Creatinine Ratio 19.2 (9.0-21.6); Bilirubin, Total 0.7 mg/dL (0.0-1.1); Ca. Corrected For Albumin 9.3 mg/dL (8.4-10.2); Calcium * 9.2 mg/dL (7.9-10.9); Carbon Dioxide 30.9 mmol/L (24-32.6); Potassium 4.5 mmol/L (3.4-4.6); Total Protein 7.1 gm/dL (6.2-8.2)
[2017-09-07 02:38] LABS: Urine Appearance Clear; Urine Blood 5 /ul (NEGATIVE); Urine Color Yellow
[2017-09-07 02:39] LABS: Urine Bacteria 1+; Urine RBC None Seen /hpf (0-5)
[2017-09-07] MEDS ORDERED: DIATRIZOATE MEGLUMINE, SODIUM 30 ML BTL PO ONE (02:51)
[2017-09-07] MEDS ORDERED: DIATRIZOATE MEGLUMINE, SODIUM 30 ML BTL ONE (02:53)
[2017-09-07 07:11] VITALS: BP 176/98
== END 2017-09-07 09:59 | disposition short-term general hospital (02) ==
LOC: ER 23:49
DX: K59.01 Slow transit constipation (principal); C80.1 Malignant (primary) neoplasm, unspecified; S32.591A Other specified fracture of right pubis, initial encounter for closed fracture; K92.1 Melena; F17.200 Nicotine dependence, unspecified, uncomplicated; G89.29 Other chronic pain; M19.90 Unspecified osteoarthritis, unspecified site; I48.91 Unspecified atrial fibrillation; Z79.01 Long term (current) use of anticoagulants; J44.9 Chronic obstructive pulmonary disease, unspecified; I10 Essential (primary) hypertension